=== PATIENT | female | born 1990 | race African-American/Black ===

== ENCOUNTER 2021-05-18 18:49 | Emergency (ER) | payer SELFPAY ==
[~2021-05-18] VITALS: Ht 172.7 cm; Wt 53.5 kg
--- NOTE | 2021-05-18 18:49 | NUR ---
PT BIB BOYFRIEND C/O SNAKE BITE ON THE L FOOT 10 MINS [employer]. PT IS AAOX4, NOT IN RESPIRATORY DISTRESS. V/S STABLE, KEPT RESTED AND COMFORTABLE. WILL CONTINUE TO MONITOR.
[2021-05-18] MEDS ORDERED: TDAP [DIPH/PERTUSSIS/TET] 0.5 ML VIAL IM ONE ×2 (19:30→19:33)
[2021-05-18] MEDS ORDERED: ACETAMINOPHEN ES 500 MG TABLET PO ONE (19:30)
--- NOTE | 2021-05-18 19:30 | NUR ---
IV LINE ESTABLISHED BLOOD DRAWN AND SENT TO LAB.
[2021-05-18] MEDS ORDERED: ACETAMINOPHEN ES 500 MG TABLET ONE (19:33)
[2021-05-18] MEDS ORDERED: LORAZEPAM 1 MG TABLET PO ONE (20:00)
--- NOTE | 2021-05-18 20:02 | NUR ---
RAD AT BED SIDE
[2021-05-18] MEDS ORDERED: LORAZEPAM 0.5 MG TABLET ONE (20:03)
[2021-05-18 20:30] LABS: BASOPHILS # (AUTO) 0.1 K/uL (0.0-0.2); BASOPHILS % (AUTO) 0.7 % (0.0-2.0); EOSINOPHILS % (AUTO) 3.5 % (0.0-6.0); HEMATOCRIT 32 % (33-45); LYMPHOCYTES # (AUTO) 2.3 K/uL (0.8-4.8); MEAN CORPUSCULAR HGB CONC 34 g/dl (31.0-36.0); MEAN CORPUSCULAR VOLUME 93 fL (82-100); MONOCYTES # (AUTO) 0.5 K/uL (0.1-1.30); MONOCYTES % (AUTO) 6.6 % (2.0-12.0); NEUTROPHILS # (AUTO) 4.4 K/uL (1.8-8.9); NEUTROPHILS % (AUTO) 58.2 % (43.0-81.0); PLATELET COUNT (AUTO) 229 K/uL (150-450); RED BLOOD CELL COUNT(AUTO) 3.42 MIL/uL (4.0-5.2); WHITE BLOOD COUNT (AUTO) 7.5 K/uL (4.3-11.0)
[2021-05-18 20:44] LABS: CALCIUM, SERUM 8.8 mg/dL (8.5-10.1); CREATININE 0.8 mg/dL (0.6-1.3); POTASSIUM 3.6 mmol/L (3.5-5.1)
[2021-05-18 20:48] LABS: D-DIMER 0.4 mg/L(FEU (0.17-0.50)
[2021-05-18 20:54] LABS: ALBUMIN 3.8 g/dL (3.4-5.0); BILIRUBIN,DIRECT 0.1 mg/dL (0.0-0.2); BILIRUBIN,TOTAL 0.2 mg/dL (0.2-1.0); TOTAL PROTEIN, SERUM 6.7 g/dL (6.4-8.2)
[2021-05-18] MEDS ORDERED: HYDROCODONE/APAP 5/325MG TABLET PO ONE (22:30)
[2021-05-18] MEDS ORDERED: HYDROCODONE/APAP 5/325MG TABLET ONE (22:48)
[2021-05-19 00:44] LABS: BASOPHILS % (AUTO) 0.5 % (0.0-2.0); EOSINOPHILS % (AUTO) 3.5 % (0.0-6.0); HEMATOCRIT 33 % (33-45); HEMOGLOBIN 11.1 g/dL (11.5-14.8); LYMPHOCYTES # (AUTO) 2.6 K/uL (0.8-4.8); LYMPHOCYTES % (AUTO) 29.1 % (20.0-44.0); MEAN CORPUSCULAR HGB CONC 33 g/dl (31.0-36.0); MEAN CORPUSCULAR VOLUME 94 fL (82-100); MONOCYTES # (AUTO) 0.7 K/uL (0.1-1.30); MONOCYTES % (AUTO) 7.7 % (2.0-12.0); NEUTROPHILS # (AUTO) 5.3 K/uL (1.8-8.9); NEUTROPHILS % (AUTO) 59.2 % (43.0-81.0); PLATELET COUNT (AUTO) 213 K/uL (150-450); RED BLOOD CELL COUNT(AUTO) 3.54 MIL/uL (4.0-5.2); WHITE BLOOD COUNT (AUTO) 8.9 K/uL (4.3-11.0)
--- NOTE | 2021-05-19 01:47 | NUR ---
DR SOLER AT BED SIDE
[2021-05-19] MEDS ORDERED: SULF1TAB47 PO (01:54)
[2021-05-19] MEDS ORDERED: HYDR-4209 PO (01:54)
[2021-05-19] MEDS ORDERED: SULFAMETH/TRIMETH 800/160 MG 1 UDTAB TABLET PO ONE (02:00)
[2021-05-19] MEDS ORDERED: SULFAMETH/TRIMETH 800/160 MG 1 UDTAB TABLET ONE (02:14)
--- NOTE | 2021-05-19 02:45 | NUR ---
pt is medically stable for d/c per md. Patient discharged to home in stable condition. Written and verbal after care instructions given. Patient verbalizes understanding of instruction.
[2021-05-19 03:05] VITALS: BP 119/63
== END 2021-05-19 02:45 | disposition home or self-care (01) ==
LOC: ER 18:54
DX: S91.332A Puncture wound without foreign body, left foot, initial encounter (principal); T63.011A Toxic effect of rattlesnake venom, accidental (unintentional), initial encounter; M79.89 Other specified soft tissue disorders; Y92.89 Other specified places as the place of occurrence of the external cause; F41.9 Anxiety disorder, unspecified; F17.210 Nicotine dependence, cigarettes, uncomplicated
CPT/HCPCS: 36415; 73650-TC; 80048-TC; 80076-TC; 82550-TC; 85025-TC; 85378-TC; 85385-TC; 85730-TC; 86850-TC; 90715

== ENCOUNTER 2021-05-22 09:50 | Emergency (ER) | payer SELFPAY ==
[~2021-05-22] VITALS: Ht 175.3 cm; Wt 53.5 kg
[~2021-05-22 09:50] MED LIST: HYDR-4209 PO; SULF1TAB47 PO
[2021-05-22 09:59] VITALS: BP 109/65
--- NOTE | 2021-05-22 10:00 | NUR ---
Patient was seen here last wednesday for a bite- given meds. Patient here for re -check follow up. Patient alert and oriented x4. Denies any complications. Respirations even and unlabored. Will continue to monitor
--- NOTE | 2021-05-22 10:15 | NUR ---
Patient discharged to home in stable condition. Written and verbal after care instructions given. Patient verbalizes understanding of instruction.
== END 2021-05-22 10:19 | disposition home or self-care (01) ==
LOC: ER 10:18
DX: T63.091D Toxic effect of venom of other snake, accidental (unintentional), subsequent encounter (principal); F41.9 Anxiety disorder, unspecified; F17.200 Nicotine dependence, unspecified, uncomplicated; Z79.899 Other long term (current) drug therapy